=== PATIENT | male | born 1975 | race Caucasian/White ===

== ENCOUNTER 2023-03-24 10:56 | Emergency (ER) | payer OTHER, SELFPAY ==
[2023-03-24] VITALS (9 sets, daily range): BP systolic 103–122; BP diastolic 59–87; PULSE 73–81; RESP 16–20; TEMP 36.8; O2SAT 96–98
--- NOTE | ~2023-03-24 | XR_ITS ---
EXAMINATION: XR chest 2V DATE: 03/24/2023 12:18 INDICATION: Chest pain, lightheaded TECHNIQUE: AP and lateral views of the chest are obtained. COMPARISON: None available FINDINGS: The lungs are free of acute opacities. No pleural effusion or pneumothorax. The cardiomedia stinal silhouette is normal. The visualized bones and soft tissues are unremarkable. IMPRESSION: 1. No acute cardiopulmonary abnormality. Reviewed, dictated and finalized at location [facility]. 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
--- NOTE | ~2023-03-24 | CT_ITS ---
Clinical Indication: Shortness of breath CT Scan of the Chest with Contrast: Technique: Contiguous sections were acquired throughout the chest after intravenous administration of 200 cc of Omnipaque 350. Dose reduction technique was used on this scan by utilizing automated expos ure control and iterative reconstruction technique. The dose-length product (DLP) was 2445.17 mGy-cm. Findings: There is no evidence of any significant mediastinal, hilar or axillary lymphadenopathy. There is no f illing defect in the pulmonary arterial tree to suggest pulmonary embolus. There is no evidence of ao rtic dissection or aneurysm. There is no evidence of pleural or pericardial effusion. The lungs are clear. No pulmonary nodules or infiltrates are noted. Images through the upper abdomen reveal no abnormalities. Impression: No evidence of pulmonary embolus, aortic dissection, or aortic aneurysm. Clear lungs. Reviewed, dictated and finalized at [facility]. 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 Clear lungs.
--- NOTE | 2023-03-24 11:10 | ECG_ITS ---
Measurements Intervals [place] Rate: 97 P: 18 [place]: 147 QRS: -6 QRSD: 86 T: 7 QT: 347 QTc: 441 Interpretive Statements SINUS RHYTHM EARLY PRECORDIAL R/S TRANSITION NONSPECIFIC T-WAVE ABNORMALITY- ANTEROLAT/INF LEADS BORDERLINE ECG NO PREVIOUS ECG AVAILABLE FOR COMPARISON Electronically Signed On 03-24-2023 11:33:06 AUDITOR by Preet Bello D.O.
[2023-03-24 11:31] LABS: Hematocrit 46.9 % (42.0-52.0); Hemoglobin 15.7 g/dL (14.0-18.0); Mean Corpuscular HGB Conc 33.5 g/dl (32-36); Mean Corpuscular Hemoglobin 29.7 pg (26-34); Mean Corpuscular Volume 88.8 fl (80-100); Platelet Count Result 220 k/mm3 (150-375); Red Blood Count 5.28 M/mm3 (4.6-6.20); Red Cell Distribution Width 13.2 % (11.5-14.5); White Blood Count 7.5 K/mm3 (4.5-10.0)
[2023-03-24 11:40] LABS: Alanine Aminotransferase 75 U/L (6-50); Albumin Level 4.1 g/dL (3.5-5.1); Alkaline Phosphatase 91 U/L (38-126); Anion Gap 9 mmol/L (8-16); Aspartate Amino Transferase 36 U/L (17-59); Bilirubin,Total 0.6 mg/dL (0.2-1.3); Blood Urea Nitrogen 17 mg/dL (9-20); Calcium 9.4 mg/dL (8.4-10.2); Carbon Dioxide 22 mmol/L (22-30); Chloride 105 mmol/L (98-107); Estimated CRCL calculation 167 ml/min; Estimated Glomerular Filt Rate > 60; Glucose 214 mg/dL (65-110); Lipase 53 U/L (23-300); Sodium 136 mmol/L (137-145)
[2023-03-24 11:43] LABS: INR 0.9; Prothrombin Time 12.9 Seconds (11.1-14.7)
[2023-03-24 11:44] LABS: Partial Thromboplastin Time 26.4 SECONDS (22.3-36.8)
[2023-03-24 11:51] LABS: Troponin I < 0.012 ng/mL (0.000-0.034)
[2023-03-24] MEDS: ASPIRIN 81 MG CHEWABLE TABLET 324 MG PO (12:08)
[2023-03-24] MEDS: MORPHINE SULFATE (*CRX) 4 MG/ML INJ IV PUSH (12:08)
[2023-03-24 14:37] LABS: Troponin I < 0.012 ng/mL (0.000-0.034)
--- NOTE | 2023-03-24 14:50 | ED.CHESTPAIN ---
HPI - Chest Pain General Chief Complaint: Chest Pain Stated Complaint: breathing and chest Time Seen by Provider: 03/24/23 11:02 History of Present Illness HPI narrative: Patient is a 47-year-old male who presents ER with chest pain shortness of breath. Reports he was driving from [place] to [place] when he developed sudden onset shortness of breath. He pulled over and began developing some chest tightness. Patient reports he has history of vasospasm. He took 2 nitroglycerin without improvement of his symptoms. Patient also suffers from PTSD and is seen at the [facility]. Reports after arriving at the hospital his discomfort started to improve. Patient had a cath in [place] for previous symptoms after having a positive troponin and there is no coronary disease and thus he was diagnosed with vasospasm. After the cath he developed a DVT and had to be on warfarin and heparin for short amount of time. He is not currently on any anticoagulation or antiplatelet medication. Related Data Allergies Allergy/AdvReac Type Severity Reaction Status Date / Time penicillin G benzathine Allergy Unknown Verified 03/24/23 12:07 [From Bicillin L-A] Review of Systems Review of Systems: All systems reviewed & are unremarkable except as noted in HPI and below Constitutional: Constitutional: Denies chills, Denies fatigue and Denies fever(s) ENT: Denies nasal congestion and Denies sore throat Cardiovascular: Cardiovascular: Reports chest pain, Denies rapid heart rate and Denies radiating jaw, neck or arm pain Respiratory: Respiratory: Denies cough, Reports dyspnea and Denies wheezing Gastrointestinal: Gastrointestinal: Denies abdominal pain, Denies diarrhea, Denies nausea and Denies vomiting Musculoskeletal: Musculoskeletal: Reports no additional musculoskeletal complaints PMFSH Past Medical History Medical History (Updated 03/24/23 @ 14:55 by Sal Groves MD) Diabetes DVT (deep venous thrombosis) PTSD (post-traumatic stress disorder) Surgical History Surgical History (Updated 03/24/23 @ 14:55 by Sal Groves MD) H/O cardiac catheterization Exam Narrative: GENERAL: Well-appearing, well-nourished, and in no acute distress. HEAD: Normocephalic, atraumatic. EYES: PERRL and EOMI. ENT: Mucous membranes moist. CHEST: Clear to auscultation. No respiratory distress. HEART: Regular rate and rhythm. Normal peripheral pulses. ABDOMEN: Soft, nontender, nondistended. EXTREMITIES: Normal range of motion. No edema. SKIN: Warm, dry, no rash. NEURO: Alert and oriented x3. PSYCH: Normal mood and affect. Course Course Emergency Course: Patient informed results. Troponin negative x2. Patient may have had a panic attack. Recommend follow-up with PCP. Vital Signs Vital signs: Vital Signs Pulse Rate 75 03/24/23 11:15 Temperature 98.3 F 03/24/23 11:30 Pulse Rate 74 03/24/23 15:10 Respiratory Rate 20 03/24/23 15:10 Blood Pressure 112/69 03/24/23 15:10 Pulse Oximetry 96 03/24/23 15:10 Oxygen Delivery Room Air 03/24/23 12:19 MDM - Chest Pain Lab Data 03/24/23 11:22 03/24/23 11:22 Labs: Lab Results 03/24/23 03/24/23 Range/Units 11:22 14:11 WBC 7.5 (4.5-10.0) K/mm3 RBC 5.28 (4.6-6.20) M/mm3 Hgb 15.7 (14.0-18.0) g/dL Hct 46.9 (42.0-52.0) % MCV 88.8 (80-100) fl MCH 29.7 (26-34) pg MCHC 33.5 (32-36) g/dl RDW 13.2 (11.5-14.5) % Plt Count 220 (150-375) k/mm3 MPV 10.0 (7.4-10.4) fl Immature Gran % (Auto) Not Reportable Neut % (Auto) Not Reportable Lymph % (Auto) Not Reportable [place] % (Auto) Not Reportable Eos % (Auto) Not Reportable Baso % (Auto) Not Reportable Lymph # (Auto) Not Reportable [place] # (Auto) Not Reportable Eos # (Auto) Not Reportable Baso # (Auto) Not Reportable Abs Immat Gran (auto) Not Reportable Absolute Neuts (auto) Not Reportable Abso
== END 2023-03-24 15:15 | disposition home or self-care (01) ==
PROVIDERS: Emergency Provider Emergency Medicine
DX: R06.02 Shortness of breath (principal); R07.89 Other chest pain; E11.9 Type 2 diabetes mellitus without complications; Z86.718 Personal history of other venous thrombosis and embolism; R94.31 Abnormal electrocardiogram [ECG] [EKG]
CPT/HCPCS: 36415; 71046; 71275; 80053; 83690; 84484; 85025; 85610; 85730; 93005; 96374; 99284; A9270; J2270; Q9967